=== PATIENT | female | born 1985 | race African-American/Black ===

== ENCOUNTER 2020-12-21 10:25 | Emergency (ER) | payer OTHER ==
[~2020-12-21] VITALS: Ht 165.1 cm; Wt 78.5 kg
[~2020-12-21 10:25] MED LIST: ALBUTEROL INHAL17 GM IH; VENTOLIN17 GM INH
[2020-12-21 11:09] LABS: URINE BILIRUBIN NEGATIVE (Negative); URINE BLOOD 3+ (Negative); URINE CLARITY CLEAR; URINE COLOR YELLOW; URINE GLUCOSE-RANDOM* NEGATIVE (Negative); URINE KETONES 2+ (Negative); URINE LEUKOCYTES-REFLEX NEGATIVE (Negative); URINE NITRITE-REFLEX NEGATIVE (Negative); URINE PROTEIN (DIPSTICK) TRACE (Negative); URINE SPECIFIC GRAVITY >= 1.030 (1.005-1.035); URINE UROBILINOGEN 0.2 E.U./dl (0.2-1.0)
[2020-12-21 11:21] LABS: SQUAMOUS >10 Many /LPF (0-3)
[2020-12-21 11:22] LABS: CASTS None Seen /LPF (None Seen); CRYSTALS None Seen /LPF (None Seen); URINE RBC 3-10 Few /HPF (0-2); URINE WBC-REFLEX 0-5 Rare /HPF (0-5)
[2020-12-21 12:05] LABS: ABSOLUTE NEUTROPHILS 4.1 thou/uL (1.4-8.2); BASOPHILS 0.6 % (0.0-2.0); HEMATOCRIT 40.9 % (37.0-47.0); HEMOGLOBIN 13.9 gm/dL (12.0-15.0); LYMPHOCYTES 20.1 % (24.0-44.0); MCH 32.6 pg (26.0-34.0); MCHC 33.9 g/dL (28.0-37.0); MONOCYTES 3.5 % (1.0-8.0); PLATELET COUNT 268 thou/uL (150-400); POLYS 75.8 % (36.0-66.0); RBC 4.26 mil/uL (4.20-5.00); RDW 14.4 % (10.5-14.5); WBC 5.4 thou/uL (4.0-11.0)
[2020-12-21 12:19] LABS: CREATININE 1.1 mg/dL (0.6-1.0); POTASSIUM 3.9 mmol/L (3.5-5.1)
[2020-12-21 12:23] LABS: ALBUMIN 4.2 g/dL (3.4-5.0); TOTAL BILIRUBIN 0.5 mg/dL (0.2-1.0)
[2020-12-21] MEDS ORDERED: HYDROCODON-ACE1 EAC7 PO (13:13)
[2020-12-21] MEDS ORDERED: CIPRO500 M1 PO (13:13)
[2020-12-21] MEDS ORDERED: ONDANSETRON HCL4 M2 PO (13:13)
[2020-12-21] MEDS ORDERED: FLAGYL500 M1 PO (13:13)
[2020-12-21 13:28] VITALS: BP 152/97
== END 2020-12-21 13:35 | disposition home or self-care (01) ==
LOC: ER 10:25
PROVIDERS: Physician Assistant
DX: K52.9 Noninfective gastroenteritis and colitis, unspecified (principal); R11.2 Nausea with vomiting, unspecified; J45.909 Unspecified asthma, uncomplicated